=== PATIENT | female | born 2000 | race African-American/Black ===

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

== ENCOUNTER 2021-04-11 08:58 | Emergency (ER) | payer OTHER ==
[~2021-04-11] VITALS: Ht 160 cm; Wt 67.7 kg
[2021-04-11 10:22] LABS: BASO % 0.3 % (0.0-1.0); EOS # 0.1 10^3/uL (0.0-0.5); EOS % 1.3 % (0.0-3.0); HEMATOCRIT 38.6 % (36.0-47.0); HEMOGLOBIN 12.7 g/dl (12.0-15.5); LYMPH # 2.1 10^3/uL (1.5-5.0); LYMPH % 33.5 % (24.0-44.0); MEAN CORPUSCULAR HEMOGLOBIN 30.6 pg (27.0-33.0); MEAN CORPUSCULAR HGB CONC 32.9 g/dl (32.0-36.5); MONO # 0.4 10^3/uL (0.0-0.8); MONO % 6.3 % (2.0-8.0); NEUTROPHILS # 3.6 10^3/uL (1.5-8.5); NEUTROPHILS % 58.3 % (36.0-66.0); PLATELET COUNT, AUTOMATED 291 10^3/uL (150-450); RED BLOOD COUNT 4.15 10^6/uL (4.00-5.40); WHITE BLOOD COUNT 6.2 10^3/uL (4.0-10.0)
--- NOTE | 2021-04-11 10:48 | REP ---
INDICATION: pelvic pain/lower abd pain. COMPARISON: 11/13/2020. TECHNIQUE: Transabdominal and transvaginal scanning performed. FINDINGS: Uterine dimensions are 7.8 x 3.9 x 5.2 cm. Endometrial echo is 9 mm in AP dimension and centrally placed. The bladder is empty. The right ovary has dimensions of 3.3 x 1.4 x 2.1 cm. It's Doppler flow is normal with a resistive index of 0.69. The left ovary dimensions are 3.7 x 2.7 x 3.4 cm. It's Doppler flow was normal with resistive index of 0.52. There is a simple cyst of the left ovary measuring 2.7 x 2.6 x 2.5 cm. There is mild free fluid in the cul-de-sac. IMPRESSION: Simple cyst left ovary 2.7 cm in maximum diameter with no torsion. Mild free fluid in the cul-de-sac. <Electronically signed by Dex Ashley > 04/11/21 [id number]
[2021-04-11 10:56] LABS: ALBUMIN 3.4 GM/DL (3.2-5.2); ALT/SGPT 29 U/L (12-78); BILIRUBIN,DIRECT 0.1 MG/DL (0.0-0.2); BILIRUBIN,TOTAL 0.4 MG/DL (0.2-1.0); BLOOD UREA NITROGEN 11 MG/DL (7-18); CALCIUM LEVEL 8.8 MG/DL (8.5-10.1); CARBON DIOXIDE LEVEL 24 MEQ/L (21-32); CHLORIDE LEVEL 108 MEQ/L (98-107); CREATININE FOR GFR 0.69 MG/DL (0.55-1.30); GLUCOSE, FASTING 92 MG/DL (70-100); LIPASE 140 U/L (73-393); POTASSIUM SERUM 4.1 MEQ/L (3.5-5.1); SODIUM LEVEL 141 MEQ/L (136-145); TOTAL PROTEIN 7.1 GM/DL (6.4-8.2)
[2021-04-11] MEDS ORDERED: ACETAMINOPHEN 500 MG TAB PO ONE (11:20)
[2021-04-11 12:26] LABS: GC DNA AMPLIFICATION NEGATIVE (NEGATIVE)
[2021-04-11] MEDS ORDERED: FLAG500T PO (13:02)
[2021-04-11] MEDS ORDERED: FLUCONAZOLE 50MG TABLET PO ONE (13:10)
[2021-04-11 13:19] VITALS: BP 118/66
== END 2021-04-11 13:20 | disposition home or self-care (01) ==
LOC: M ED 08:58
DX: R10.2 Pelvic and perineal pain (principal); N76.0 Acute vaginitis; Z86.19 Personal history of other infectious and parasitic diseases; N83.292 Other ovarian cyst, left side

== ENCOUNTER 2021-04-18 13:12 | Emergency (ER) | payer OTHER ==
[~2021-04-18] VITALS: Ht 160 cm; Wt 69.9 kg
[2021-04-18 13:12] VITALS: BP 124/73
[2021-04-19] MEDS ORDERED: FLAG500T PO (12:13)
[2021-04-19] MEDS ORDERED: CIPR-249 PO (12:13)
== END 2021-04-18 15:11 | disposition left against medical advice (07) ==
LOC: M ED 13:12
DX: Z53.21 Procedure and treatment not carried out due to patient leaving prior to being seen by health care provider (principal)

== ENCOUNTER 2021-04-19 07:27 | Emergency (ER) | payer OTHER ==
[~2021-04-19] VITALS: Ht 160 cm; Wt 63.6 kg
[2021-04-19 08:49] LABS: BASO % 0.8 % (0.0-1.0); EOS # 0.1 10^3/uL (0.0-0.5); EOS % 1.1 % (0.0-3.0); HEMATOCRIT 40.3 % (36.0-47.0); HEMOGLOBIN 13.4 g/dl (12.0-15.5); LYMPH # 2.6 10^3/uL (1.5-5.0); MEAN CORPUSCULAR HEMOGLOBIN 31.3 pg (27.0-33.0); MEAN CORPUSCULAR HGB CONC 33.3 g/dl (32.0-36.5); MEAN CORPUSCULAR VOLUME 94.2 fl (80.0-96.0); MONO # 0.3 10^3/uL (0.0-0.8); MONO % 5.7 % (2.0-8.0); NEUTROPHILS # 2.3 10^3/uL (1.5-8.5); NEUTROPHILS % 43.4 % (36.0-66.0); PLATELET COUNT, AUTOMATED 310 10^3/uL (150-450); RED BLOOD COUNT 4.28 10^6/uL (4.00-5.40); WHITE BLOOD COUNT 5.3 10^3/uL (4.0-10.0)
[2021-04-19 09:13] LABS: HCG, SERUM QUALITATIVE NEGATIVE (NEGATIVE)
[2021-04-19 09:20] LABS: ALBUMIN 3.5 GM/DL (3.2-5.2); ALT/SGPT 36 U/L (12-78); BILIRUBIN,DIRECT < 0.1 MG/DL (0.0-0.2); BILIRUBIN,TOTAL 0.1 MG/DL (0.2-1.0); BLOOD UREA NITROGEN 12 MG/DL (7-18); CALCIUM LEVEL 8.9 MG/DL (8.5-10.1); CARBON DIOXIDE LEVEL 22 MEQ/L (21-32); CHLORIDE LEVEL 111 MEQ/L (98-107); CREATININE FOR GFR 0.72 MG/DL (0.55-1.30); GLUCOSE, FASTING 94 MG/DL (70-100); LIPASE 132 U/L (73-393); POTASSIUM SERUM 4.2 MEQ/L (3.5-5.1); SODIUM LEVEL 139 MEQ/L (136-145); TOTAL PROTEIN 8.1 GM/DL (6.4-8.2)
--- NOTE | 2021-04-19 10:19 | REP ---
INDICATION: LLQ pain r/o torsion. COMPARISON: 04/11/2021 TECHNIQUE: Transvesically vesicle and transvaginal imaging FINDINGS: The uterus is unchanged in size and shape for may days ago. The endometrial echo complex is again seen to be normal measuring 3 mm in its greatest thickness. The right ovary measures 3.9 x 1.5 x 2.9 cm and is within normal limits for with an RI of 0.34 The left ovary measures 3.6 x 1.9 x 2.8 cm and is within normal limits with an RI of 0.54 There is a trace amount of free fluid in the cul-de-sac which is most likely physiologic. The urinary bladder measures 4 x 4 x 6 cm. IMPRESSION: Normal pelvic ultrasound.. <Electronically signed by Albino Wheeler > 04/19/21 [id number]
[2021-04-19] MEDS ORDERED: ACETAMINOPHEN TAB 650MG DOSE (2X325MG) PO ONE (10:30)
[2021-04-19] MEDS ORDERED: ISOVUE-370 76% 100ML VIAL As Ordered ONE (10:35)
--- NOTE | 2021-04-19 10:54 | REP ---
INDICATION: LLQ pain. COMPARISON: None TECHNIQUE: Axial contrast-enhanced images from the lung bases to the pubic symphysis using 100 cc Isovue 370 intravenous contrast material. . This CT examination was performed using the following dose reduction techniques: Automated exposure control, adjustment of mA and/or kv according to the patient's size, and the use of iterative reconstruction technique. FINDINGS: Liver, spleen, pancreas, gallbladder, bilateral adrenal glands and kidneys are normal. The enteric system including stomach, small, and large bowel appears essentially normal. No evidence for obstruction or definite acute inflammatory process. Normal terminal ileum and appendix are identified in the right lower quadrant. Pelvis demonstrates normal bladder and age-appropriate uterus/adnexa. No ascites. No free air. No intraperitoneal or retroperitoneal adenopathy. Abdominal aorta and vasculature appear normal. Musculoskeletal structures are intact and without acute osseous abnormality. IMPRESSION: No definite acute abdominopelvic pathology appreciated. A very subtle acute colitis cannot be excluded. No ascites, focal inflammatory stranding, free air or adenopathy. <Electronically signed by Lex Dias > 04/19/21 [id number]
[2021-04-19] MEDS ORDERED: CIPROFLOXACIN 500MG TABLET PO ONE (12:10)
[2021-04-19] MEDS ORDERED: metroNIDAZOLE (FLAGYL) 500MG TABLET PO ONE (12:10)
[2021-04-19] MEDS ORDERED: CIPR-249 PO (12:13)
[2021-04-19] MEDS ORDERED: FLAG500T PO (12:13)
[2021-04-19 12:43] LABS: GC DNA AMPLIFICATION NEGATIVE (NEGATIVE)
[2021-04-19 12:50] VITALS: BP 119/75
== END 2021-04-19 13:10 | disposition home or self-care (01) ==
LOC: M ED 07:27
DX: K52.9 Noninfective gastroenteritis and colitis, unspecified (principal)
CPT/HCPCS: 74177; 76830; 76856; 80048; 80076; 81001; 83690; 84703; 85025; 87491; 87591; 93976; 99284; Q9967

== ENCOUNTER 2021-04-29 21:52 | Emergency (ER) | payer OTHER ==
[~2021-04-29] VITALS: Ht 160 cm; Wt 68.3 kg
[2021-04-29 21:52] VITALS: BP 130/72
== END 2021-04-30 02:34 | disposition left against medical advice (07) ==
LOC: M ED 21:52
DX: Z53.21 Procedure and treatment not carried out due to patient leaving prior to being seen by health care provider (principal)

== ENCOUNTER 2022-05-02 11:49 | Outpatient (CLI) | payer OTHER ==
[~2022-05-02] VITALS: Ht 160 cm; Wt 85.6 kg
[2022-05-02 12:12] VITALS: BP 136/92
[2022-05-02] MEDS ORDERED: PRENTAB9 PO (12:13)
[2022-05-02] MEDS ORDERED: TERBUTALINE SULFATE 1 MG/ML VIAL (J3105) As Ordered ONE (13:16)
[2022-05-02 13:26] VITALS: BP 140/80
[2022-05-02] MEDS ORDERED: TERBUTALINE SULFATE 1 MG/ML VIAL (J3105) SC ONE (14:00)
[2022-05-02 16:46] VITALS: BP 140/91
[2022-05-20] MEDS ORDERED: ACET-683 PO (05:19)
[2022-05-20] MEDS ORDERED: IBUP80TA PO (05:19)
[2022-05-20] MEDS ORDERED: COLA100C5 PO (05:19)
== END 2022-05-02 16:48 | disposition home or self-care (01) ==
LOC: M LDO 11:49
PROVIDERS: ATTEND Obstetrics & Gynecology
DX: O32.1XX0 Maternal care for breech presentation, not applicable or unspecified (principal); Z3A.37 37 weeks gestation of pregnancy
CPT/HCPCS: 59025; 59412; G0463; J3105

== ENCOUNTER 2022-05-16 09:34 | Inpatient (IN) | payer OTHER ==
[~2022-05-16] VITALS: Ht 160 cm; Wt 92.8 kg
[~2022-05-16 09:34] MED LIST changes: +PRENTAB9 PO
[2022-05-16 09:49] VITALS: BP 173/101
[2022-05-16 10:03] VITALS: BP 143/103
[2022-05-16 10:52] VITALS: BP 136/99
[2022-05-16] MEDS ORDERED: HOME MED LIST COMPLETE! XX SCH (11:20)
[2022-05-16 12:03] VITALS: BP 134/101
[2022-05-16] MEDS ORDERED: ceFAZolin SOD 2 GM in IV 1 EA IV ONE (12:35)
[2022-05-16] MEDS ORDERED: LR 1,000 ML IV SCH (12:35)
[2022-05-16] MEDS ORDERED: METHYLERGONOVINE MALEATE 0.2 MG/ML VIAL (J2210) IM PRN (12:35)
[2022-05-16] MEDS ORDERED: BICITRA 30ML SOLN UDC PO ONE (12:35)
[2022-05-16] MEDS ORDERED: OXYTOCIN DRIP 30 UNITS in IV 1 EA IV PRN ×4 (12:35)
[2022-05-16] MEDS ORDERED: LACTATED RINGER'S 1000 ML IV STA (12:35)
[2022-05-16] MEDS ORDERED: BUPIVACAINE HCL 0.25% 10ML VIAL SC ONE (12:35)
[2022-05-16 14:09] LABS: HEMATOCRIT 35.5 % (36.0-47.0); HEMOGLOBIN 11.8 g/dl (12.0-15.5); MEAN CORPUSCULAR HEMOGLOBIN 31.3 pg (27.0-33.0); MEAN CORPUSCULAR HGB CONC 33.2 g/dl (32.0-36.5); MEAN CORPUSCULAR VOLUME 94.2 fl (80.0-96.0); PLATELET COUNT, AUTOMATED 206 10^3/uL (150-450); RED BLOOD COUNT 3.77 10^6/uL (4.00-5.40)
[2022-05-16 14:50] VITALS: BP 137/98
[2022-05-16 16:32] VITALS: BP 135/91
[2022-05-16] MEDS ORDERED: MORPHINE PRES-FREE INJ 10 MG/10 ML VIAL As Ordered ONE (19:37)
[2022-05-16] MEDS ORDERED: OXYTOCIN 30 UNITS IN 0.9% NaCl 500ML IV BAG (J2590) As Ordered ONE (19:40)
[2022-05-20] MEDS ORDERED: ACET-683 PO (05:19)
[2022-05-20] MEDS ORDERED: IBUP80TA PO (05:19)
[2022-05-20] MEDS ORDERED: COLA100C5 PO (05:19)
== END 2022-05-16 21:45 | disposition left against medical advice (07) | DRG 833 ==
LOC: M LDI 09:34
PROVIDERS: ADMIT Obstetrics & Gynecology; ATTEND Obstetrics & Gynecology
DX: O36.8330 Maternal care for abnormalities of the fetal heart rate or rhythm, third trimester, not applicable or unspecified (principal); Z3A.39 39 weeks gestation of pregnancy; O32.1XX0 Maternal care for breech presentation, not applicable or unspecified; Z53.20 Procedure and treatment not carried out because of patient's decision for unspecified reasons

== ENCOUNTER 2023-05-09 14:21 | Emergency (ER) | payer OTHER ==
[~2023-05-09] VITALS: Ht 160 cm; Wt 76.2 kg
[~2023-05-09 14:21] MED LIST changes: +ACET-683 PO; +IBUP80TA PO
[2023-05-09 14:22] VITALS: TEMP 98.4
[2023-05-09] MEDS ORDERED: FLUORESCEIN OPHTH 1MG STRIP OS ONE (15:05)
[2023-05-09] MEDS ORDERED: TETRACAINE 0.5% OPHTH SOLN 4ML OS ONE (15:05)
[2023-05-09] MEDS ORDERED: OFLOXACIN 0.3 % (OCUFLOX) OPTH SOL 5ML OS STA (15:20)
[2023-05-09] MEDS ORDERED: OCUF0.25 OS (16:13)
[2023-05-09 16:21] VITALS: BP 145/86; O2SAT 100
== END 2023-05-09 16:29 | disposition home or self-care (01) ==
LOC: M ED 14:21
DX: S05.02XA Injury of conjunctiva and corneal abrasion without foreign body, left eye, initial encounter (principal); W50.0XXA Accidental hit or strike by another person, initial encounter; Y92.009 Unspecified place in unspecified non-institutional (private) residence as the place of occurrence of the external cause; Y93.89 Activity, other specified; Y99.8 Other external cause status

== ENCOUNTER 2024-01-22 23:45 | Emergency (ER) | payer OTHER ==
[~2024-01-22] VITALS: Ht 160 cm; Wt 74.3 kg
[~2024-01-22 23:45] MED LIST changes: +OCUF0.25 OS
[2024-01-23] MEDS: FLUORESCEIN OPHTH 1MG STRIP OS ONE (00:55)
[2024-01-23] MEDS: TETRACAINE 0.5% OPHTH SOLN 4ML OS ONE (00:55)
[2024-01-23] MEDS ORDERED: OCUF0.25 OS (01:47)
[2024-01-23] MEDS: OFLOXACIN 0.3 % (OCUFLOX) OPTH SOL 5ML OS STA (02:38)
[2024-01-23 02:40] VITALS: BP 123/75; TEMP 98; O2SAT 98
== END 2024-01-23 02:42 | disposition home or self-care (01) ==
LOC: M ED 23:45
DX: S05.02XA Injury of conjunctiva and corneal abrasion without foreign body, left eye, initial encounter (principal); X58.XXXA Exposure to other specified factors, initial encounter; Y92.9 Unspecified place or not applicable; Y93.9 Activity, unspecified; Y99.9 Unspecified external cause status

== ENCOUNTER → 2025-07-31 | Outpatient (REF) | payer OTHER ==
[~2025-07-31] MED LIST changes: +D 50CAP2 PO; +IBUP200T46 PO; +ONDA-282 PO; -ONDA4TAB6 PO; +PROM25TA12 PO
== END ==
LOC: M LAB REF 17:16
PROVIDERS: ATTEND Otolaryngology
DX: J35.01 Chronic tonsillitis (principal)